=== PATIENT | male | born 1935 | race Caucasian/White ===

== ENCOUNTER 2023-09-14 22:58 | Emergency (ER) | payer MEDICARE ==
[2023-09-15] MEDS: Sodium Chloride 0.9% 1,000 ML IV SCH (02:09)
[2023-09-15 02:13] LABS: BASOPHILS PERCENT AUTO 0.2 % (0.1-1.3); HEMATOCRIT 40.5 % (38.4-49.7); HEMOGLOBIN 14.1 g/dL (12.9-16.9); IMMATURE GRAN PERCENT AUTO 0.2 % (0.0-0.7); LYMPHOCYTES ABSOLUTE AUTO 0.58 K/uL (0.8-3.3); LYMPHOCYTES PERCENT AUTO 12.5 % (11.4-47.7); MEAN CORPUSCULAR HEMOGLOBIN 30.3 pg (31.6-35.5); MEAN CORPUSCULAR HGB CONC 34.8 g/dL (31.6-35.5); MEAN CORPUSCULAR VOLUME 86.9 fL (81.4-99.0); MONOCYTES ABSOLUTE AUTO 0.56 K/uL (0.20-0.90); NEUTROPHILS ABSOLUTE AUTO 3.49 K/uL (1.0-7.6); NEUTROPHILS PERCENT AUTO 75.1 % (40.0-78.1); PLATELET COUNT,PLT 126 K/uL (130-375); RED BLOOD CELL COUNT 4.66 M/uL (4.14-5.76); WHITE BLOOD CELL COUNT,WBC 4.7 K/uL (3.2-11.0)
[2023-09-15] MEDS: cefTRIAXone 2 GM in Sodium Chloride 0.9% 50 ML IV ONE (02:16)
[2023-09-15 02:19] LABS: BASOPHILS ABSOLUTE AUTO 0.01 K/uL (0.00-0.10); IMMATURE GRAN ABSOLUTE AUTO 0.01 K/uL (0.00-0.23)
[2023-09-15 02:31] LABS: A/G RATIO 1.2 (1.2-2.2); ALANINE AMINOTRANSFERASE,ALT 60 U/L (12-78); ALBUMIN 3.6 g/dL (3.4-5.0); ALKALINE PHOSPHATASE 118 U/L (46-116); ASPARTATE AMNIOTRANSFERASE,AST 106 U/L (15-37); BILIRUBIN TOTAL 0.4 mg/dL (0.2-1.0); BLOOD UREA NITROGEN,BUN 30 mg/dL (7-18); CARBON DIOXIDE,CO2 26 mmol/L (21-32); CHLORIDE,CL 100 mmol/L (100-108); CREATININE 1.3 mg/dL (0.8-1.3); EST CRCL DRUG DOSING (CG) 41.83 mL/min; ESTIMATED GFR 53 mL/min (>60); GLUCOSE RANDOM 130 mg/dL (74-106); MAGNESIUM 1.8 mg/dL (1.8-2.4); POTASSIUM,K 3.5 mmol/L (3.6-5.2); PROTEIN TOTAL,TP 6.7 g/dL (6.4-8.2); SODIUM,NA 135 mmol/L (140-148)
[2023-09-15 02:32] LABS: ANION GAP 12.5 mmol/L (5.0-14.0)
[2023-09-15 02:58] LABS: LYME AB IgM Equivocal (Negative)
[2023-09-15 03:03] LABS: LYME AB IgG Negative (Negative)
[2023-09-18 15:49] LABS: B. BURGDORFERI IGG IMMUNOBLOT Negative (Negative); B. BURGDORFERI IGM IMMUNOBLOT Negative (Negative)
== END 2023-09-15 03:59 | disposition home or self-care (01) ==
LOC: JP.ED 22:58
DX: E86.0 Dehydration (principal); A69.20 Lyme disease, unspecified; I10 Essential (primary) hypertension; E78.00 Pure hypercholesterolemia, unspecified; Z86.16 Personal history of COVID-19; Z79.899 Other long term (current) drug therapy; Z88.5 Allergy status to narcotic agent
CPT/HCPCS: 36415; 80053; 83605; 83735; 85025; 86617; 86618; 96361; 96365; 99284; J0696; J3490; J7030; U0002

== ENCOUNTER 2023-09-15 21:18 | Emergency (ER) | payer MEDICARE ==
[2023-09-16] MEDS: Apixaban 5 MG Tab PO ONE (00:17)
== END 2023-09-16 00:25 | disposition home or self-care (01) ==
LOC: JP.ED 21:18
DX: A69.20 Lyme disease, unspecified (principal); I48.91 Unspecified atrial fibrillation; I10 Essential (primary) hypertension; E78.00 Pure hypercholesterolemia, unspecified; Z88.8 Allergy status to other drugs, medicaments and biological substances; Z79.899 Other long term (current) drug therapy; Z87.891 Personal history of nicotine dependence
CPT/HCPCS: 93005; 99284; A9270; 93010; 99285